=== PATIENT | female | born 1980 | race Caucasian/White ===

== ENCOUNTER 2018-03-16 09:53 | Emergency (ER) | payer OTHER ==
[2018-03-16] MEDS ORDERED: DEXAMETHASONE 10 MG/ML VIAL PO STA (10:37)
[2018-03-16] MEDS ORDERED: KETOROLAC 60 MG/2 ML VIAL IM STA (10:37)
--- NOTE | 2018-03-16 10:41 | ED Physician Documentation ---
PD HPI BACK PAIN - Stated complaint Stated Complaint: BACK PX - Chief complaint Chief Complaint: Back Pain - History obtained from History obtained from: Patient - History of Present Illness Timing - onset: Yesterday Timing - details: Gradual onset, Still present Location: Lower Quality: Pain, Spasm Associated symptoms: No: Fever, Weakness, Numbness, Incontinent of urine Worsened by: Movement, Twisting Similar symptoms before: Has not had sx before - Treatment prior to arrival Treatment prior to arrival: Tylenol and Ibuprophen without relief. - Additional information Additional information: The patient is a 37-year-old female who presents with lower back pain. The pain started yesterday with no specific injury. She was doing housework at the time the pain started. She denies any associated fever, numbness, weakness, or urinary incontinence. The pain is worse today than it was yesterday. It is worse with movement. She has been using Tylenol and ibuprofen without relief. Past history is significant for a slipped lumbar disc about 10 years ago. The pain today feels different from that, with more of muscle spasm. Review of Systems Constitutional: denies: Fever Nose: denies: Congestion Throat: denies: Sore throat Cardiac: denies: Chest pain / pressure Respiratory: denies: Dyspnea, Cough GI: denies: Abdominal Pain, Nausea, Vomiting : denies: Dysuria, Incontinent Skin: denies: Rash Musculoskeletal: reports: Back pain (lower back). denies: Neck pain, Extremity pain Neurologic: denies: Focal weakness, Numbness, Headache PD PAST MEDICAL HISTORY - Past Medical History Past Medical History: No - Past Surgical History Past Surgical History: Yes General: Cholecystectomy, Appendectomy /TEAROOM HOST: section - Present Medications Home Medications: Ambulatory Orders Medication Instructions Recorded Confirmed Cyclobenzaprine [Flexeril] 10 mg PO TID PRN #20 tablet 03/16/18 HYDROcod/ACETAM 5/325 [[place] 5/325] 1 - 2 ea PO Q6H PRN #15 tablet 03/16/18 - Allergies Allergies/Adverse Reactions: Allergies Allergy/AdvReac Type Severity Reaction Status Date / Time No Known Drug Allergies Allergy Verified 03/16/18 10:01 - Social History Does the pt smoke?: No Smoking Status: Never smoker Does the pt drink ETOH?: Yes Does the pt have substance abuse?: No - Immunizations Immunizations are current?: Yes PD ED PE NORMAL - Vitals Vital signs reviewed: Yes (mild hypertension initially) - General General: Alert and oriented X 3, Well developed/nourished - HEENT HEENT: Atraumatic - Neck Neck: No adenopathy - Cardiac Cardiac: RRR - Respiratory Respiratory: No respiratory distress, Clear bilaterally - Abdomen Abdomen: Soft, Non tender - Back Back: No CVA TTP, No spinal TTP, Other (Tenderness to palpation of paralumbar musculature.) - Derm Derm: No rash - Extremities Extremities: No edema, No calf tenderness / cord, Other (Straight leg raise test is negative bilaterally.) - Neuro Neuro: Alert and oriented X 3, No motor deficit, No sensory deficit, Other ( Deep tendon reflexes 2+ and equal bilaterally at the patellar and Achilles tendons.) Results - Vitals Vitals: Vital Signs - 24 hr 03/16/18 03/16/18 09:58 11:41 Temperature 36.5 C 37.1 C Heart Rate 82 70 Respiratory 16 17 Rate Blood Pressure 129/90 H 118/78 O2 Saturation 98 99 Oxygen O2 Source Room air PD MEDICAL DECISION MAKING - ED course Complexity details: re-evaluated patient, considered differential, d/w patient ED course: The patient's presentation is most consistent with acute lumbar strain. Her presentation does not suggest epidural abscess, cauda equina syndrome, or spinal stenosis. Treatment in the emergency department included administration of dexamethasone 10 mg orally and ketorolac 60 mg IM. She reports slight improvement of her symptoms with this treatment. She is being discharged with prescriptions for Flexeril and for Vicodin, 15 tablets. I discussed with her the expected course of illness, symptomatic treatment and outpatient follow-up, as well as potentially worrisome signs or symptoms that should prompt reevaluation in the emergency department. - Sepsis Event Vital Signs: Vital Signs - 24 hr 03/16/18 03/16/18 09:58 11:41 Temperature 36.5 C 37.1 C Heart Rate 82 70 Respiratory 16 17 Rate Blood Pressure 129/90 H 118/78 O2 Saturation 98 99 Oxygen O2 Source Room air Departure - Departure Disposition: 01 Home, Self Care Clinical Impression: Back pain Qualifiers: Back pain location: low back pain Chronicity: acute Back pain laterality: bilateral Sciatica presence: without sciatica Qualified Code(s): M54.5 - Low back pain Condition: Stable Instructions: ED Low Back Pain Injury Follow-Up: JLUIS ZEE PA-C [Primary Care Provider] - Prescriptions: Cyclobenzaprine [Flexeril] 10 mg PO TID PRN #20 tablet PRN Reason: Spasms HYDROcod/ACETAM 5/325 [[place] 5/325] 1 - 2 ea PO Q6H PRN #15 tablet PRN Reason: Pain Comments: Apply ice pack to your lower back intermittently for the next 3 days. You can use ibuprofen, up to 800 mg 3 times daily for its anti-inflammatory effect. You can use Flexeril as prescribed if needed for muscle spasms. You can use Vicodin as prescribed if needed for pain. Let pain be your guide to activity level. Follow up with your primary physician within 1-2 weeks. Call to schedule appointment. Return to the emergency department if you develop increasing pain, fever, urinary incontinence, or otherwise worsening symptoms. Discharge Date/Time: 03/16/18 11:44
[2018-03-16] MEDS ORDERED: CHERRY SYRUP 10 ML UDC PO ONE (10:42)
[2018-03-16 11:41] VITALS: BP 118/78
== END 2018-03-16 11:44 | disposition home or self-care (01) ==
LOC: ED 09:53
DX: M54.5 Low back pain (principal)
CPT/HCPCS: 96372; 99283; A9270

== ENCOUNTER 2018-11-17 20:17 | Emergency (ER) | payer OTHER ==
[2018-11-17 20:23] VITALS: BP 118/71
[2018-11-17] MEDS ORDERED: CHERRY SYRUP 10 ML UDC PO ONE (20:36)
[2018-11-17] MEDS ORDERED: DEXAMETHASONE 10 MG/ML VIAL PO STA (20:36)
[2018-11-17] MEDS ORDERED: IPRATROPIUM/ALBUTEROL 3 ML NEB INH STA (20:36)
--- NOTE | 2018-11-17 20:39 | ED Physician Documentation ---
PD HPI DYSPNEA - Stated complaint Stated Complaint: ASTMA ATTACK - Chief complaint Chief Complaint: Resp - History obtained from History obtained from: Patient - History of Present Illness Timing - onset: Today Timing - onset during: Rest Timing - duration: Days (1) Timing - details: Gradual onset, Still present Inciting event(s): URI Improved by: Inhaler/neb Worsened by: Exertion, Coughing Associated symptoms: Cough. No: Fever, Chest pain / discomfort, Palpitations, Diaphoresis Similar symptoms before: Diagnosis (asthma) Recently seen: Not recently seen - Additional information Additional information: 38-year-old female with a history of allergic asthma has developed shortness of breath today that has not responded to use of her inhaler multiple times. She states that yesterday she did not have to use her inhaler at all. She is developed a cough today she is on some Claritin and has not had much in the way of nasal drainage. She last had to be on prednisone last year. Review of Systems Constitutional: denies: Fever Eyes: denies: Decreased vision Ears: denies: Ear pain Nose: denies: Rhinorrhea / runny nose, Congestion Throat: denies: Sore throat Cardiac: denies: Chest pain / pressure, Palpitations Respiratory: reports: Dyspnea, Cough, Wheezing GI: denies: Abdominal Pain, Nausea : denies: Dysuria PD PAST MEDICAL HISTORY - Past Surgical History Past Surgical History: Yes General: Cholecystectomy, Appendectomy /HUMANITIES PROFESSOR: section - Present Medications Home Medications: Ambulatory Orders Medication Instructions Recorded Confirmed Cyclobenzaprine [Flexeril] 10 mg PO TID PRN #20 tablet 03/16/18 HYDROcod/ACETAM 5/325 [[place] 5/325] 1 - 2 ea PO Q6H PRN #15 tablet 03/16/18 predniSONE [Deltasone] 10 mg PO ONCE #26 tablet 11/17/18 - Allergies Allergies/Adverse Reactions: Allergies Allergy/AdvReac Type Severity Reaction Status Date / Time No Known Drug Allergies Allergy Verified 03/16/18 10:01 - Social History Does the pt smoke?: No Smoking Status: Never smoker Does the pt drink ETOH?: Yes Does the pt have substance abuse?: No - Immunizations Immunizations are current?: Yes PD ED PE NORMAL - Vitals Vital signs reviewed: Yes (normal ) - General General: Alert and oriented X 3, Well developed/nourished, Other (short shallow breaths.) - HEENT HEENT: Atraumatic, PERRL, EOMI, Ears normal, Pharynx benign - Neck Neck: Supple, no meningeal sign, No bony TTP - Cardiac Cardiac: RRR, No murmur - Respiratory Respiratory: No respiratory distress, Other (diminished breath sounds bilat) - Abdomen Abdomen: Soft, Non tender - Back Back: No CVA TTP, No spinal TTP - Derm Derm: Normal color, Warm and dry, No rash - Extremities Extremities: No deformity, No edema - Neuro Neuro: Alert and oriented X 3, trade mark attorney 2-12 intact, No motor deficit, No sensory deficit, Normal speech Eye Opening: Spontaneous Motor: Obeys Commands Verbal: Oriented GCS Score: 15 - Psych Psych: Normal mood, Normal affect Results - Vitals Vitals: Vital Signs - 24 hr 11/17/18 20:20 Temperature 36.6 C Heart Rate 78 Respiratory 16 Rate Blood Pressure 118/71 O2 Saturation 100 Oxygen O2 Source Room air PD MEDICAL DECISION MAKING - ED course Complexity details: reviewed old records, reviewed results, re-evaluated patient, considered differential, d/w patient ED course: 38-year-old female with history of allergic asthma has developed acute asthma today and has a lot of tightness to her upper chest restricting her breathing. Here in the emerge department she is administered a DuoNeb treatment she is given a spacer for use with her albuterol inhaler and she is given 10 mg of dexamethasone. We will place her on a prednisone taper I discussed the expectations with patient and asked her to return to the emergency department should she not have further improvement in her breathing or if she has any worsening. Departure - Departure Disposition: 01 Home, Self Care Clinical Impression: Asthma exacerbation Qualifiers: Asthma severity: mild Asthma persistence: intermittent Qualified Code(s): J45.21 - Mild intermittent asthma with (acute) exacerbation Condition: Stable Instructions: ED Reactive Airway Disease Follow-Up: Harjeet Romero MD [Primary Care Provider] - Prescriptions: predniSONE [Deltasone] 10 mg PO ONCE #26 tablet
== END 2018-11-17 21:26 | disposition home or self-care (01) ==
LOC: ED 20:17
DX: J45.21 Mild intermittent asthma with (acute) exacerbation (principal)
CPT/HCPCS: 94640; 99281; 99284; A9270

== ENCOUNTER 2019-05-20 19:18 | Emergency (ER) | payer OTHER ==
--- NOTE | 2019-05-20 20:05 | XRAY Report ---
Reason: cough x 1 week with SOA x 2 days Procedure Date: 05/20/2019 Accession Number: [id number] / [id number] Procedure: XR - Chest 2 View X-Ray CPT Code: 11271 Final Report FULL RESULT: EXAM: CHEST RADIOGRAPHY EXAM DATE: 05/20/2019 07:37 PM. CLINICAL HISTORY: Cough x 1 week with shortness of breath x 2 days. COMPARISON: None. TECHNIQUE: PA x2, lateral views. FINDINGS: Lungs/Pleura: No focal opacities evident. No peribronchial cuffing or interstitial abnormality. No pleural effusion. No pneumothorax. Normal volumes. Mediastinum: Heart and mediastinal contours are unremarkable. Other: None. IMPRESSION: Normal chest radiography. RADIA
[2019-05-20] MEDS ORDERED: IPRATROPIUM/ALBUTEROL 3 ML NEB INH STA (20:44)
[2019-05-20] MEDS ORDERED: predniSONE 20 MG TABLET PO STA (20:44)
--- NOTE | 2019-05-20 20:46 | ED Physician Documentation ---
PD HPI URI - Stated complaint Stated Complaint: ASTMATIC SX - Chief complaint Chief Complaint: Resp - History obtained from History obtained from: Patient (38-year-old woman with history of mild intermittent asthma. Does not take anything at maintenance. Has been hospitalized in the past but not for many years. She complains of cough and cold symptoms for a week and now difficulty breathing for the last few days with a nonproductive cough and wheezing that has not been helped much by her albuterol inhaler which is the only thing she has at home right now for her asthma. No fevers at this juncture.) Review of Systems Constitutional: denies: Fever, Chills Nose: denies: Rhinorrhea / runny nose Respiratory: reports: Dyspnea, Cough, Wheezing PD PAST MEDICAL HISTORY - Past Medical History Past Medical History: Yes Cardiovascular: None Respiratory: Asthma Neuro: None Endocrine/Autoimmune: None GI: None SOIL CHEMIST: None : None HEENT: None Psych: Post traumatic stress disorder Musculoskeletal: None Derm: None - Past Surgical History Past Surgical History: Yes General: Cholecystectomy, Appendectomy /SOIL CHEMIST: section - Present Medications Home Medications: Ambulatory Orders Medication Instructions Recorded Confirmed Albuterol Sulfate [Albuterol 1 - 2 puffs INH PRN PRN 05/20/19 05/20/19 Sulfate Hfa] Loratadine [Claritin] 10 mg PO DAILY 05/20/19 05/20/19 Sertraline [Zoloft] 50 mg PO DAILY 05/20/19 05/20/19 predniSONE [Deltasone] 20 mg PO [id number] #21 tab 05/20/19 - Allergies Allergies/Adverse Reactions: Allergies Allergy/AdvReac Type Severity Reaction Status Date / Time No Known Drug Allergies Allergy Verified 05/20/19 19:24 - Social History Does the pt smoke?: No Smoking Status: Never smoker Does the pt drink ETOH?: Yes Does the pt have substance abuse?: No - Immunizations Immunizations are current?: Yes - POLST Patient has POLST: No PD ED PE NORMAL - Vitals Vital signs reviewed: Yes - General General: Alert and oriented X 3, No acute distress - Neck Neck: Supple, no meningeal sign, No bony TTP - Cardiac Cardiac: RRR, No murmur - Respiratory Respiratory: No respiratory distress, Other (Occasional bronchitic cough, nonlabored, speaking in full sentences, diminished throughout.) - Neuro Neuro: Alert and oriented X 3, Normal speech Results - Vitals Vitals: Vital Signs - 24 hr 05/20/19 05/20/19 05/20/19 19:20 20:58 21:15 Temperature 36.8 C Heart Rate 94 100 104 H Respiratory 20 20 20 Rate Blood Pressure 143/87 H O2 Saturation 98 05/20/19 21:32 Temperature 36.7 C Heart Rate 100 Respiratory 18 Rate Blood Pressure 115/65 O2 Saturation 99 Oxygen O2 Source Room air PD MEDICAL DECISION MAKING - ED course ED course: 38-year-old woman with mild intermittent asthma with acute exacerbation. Much better and much more air movement after 2 nebs here and also got steroids. No evidence of bacterial infection. Chest x-ray interpreted contemporaneously by me is clear. Departure - Departure Disposition: Home, Self Care Clinical Impression: Asthma exacerbation Qualifiers: Asthma severity: mild Asthma persistence: intermittent Qualified Code(s): J45.21 - Mild intermittent asthma with (acute) exacerbation Condition: Good Record reviewed to determine appropriate education?: Yes Instructions: Asthma Dc Prescriptions: predniSONE [Deltasone] 20 mg PO [id number] #21 tab Comments: Call your doctor to arrange a follow-up appointment, make the next available appointment. In the interim, return anytime if worse or if new symptoms develop.. Your blood pressure was elevated today on check into the emergency department. This does not mean that you have hypertension, it is a common phenomenon to come to the emergency department and have elevated blood pressure. I recommend that you see your primary care physician within the week to have it rechecked when you are feeling better. Discharge Date/Time: 05/20/19 21:35
[2019-05-20] MEDS ORDERED: ALBUTEROL NEB 2.5 MG/3 ML INH STA (21:09)
[2019-05-20 21:33] VITALS: BP 115/65
== END 2019-05-20 21:35 | disposition home or self-care (01) ==
LOC: ED 19:18
DX: J45.21 Mild intermittent asthma with (acute) exacerbation (principal)
CPT/HCPCS: 71046; 94640; 99283; 99284; J7512

== ENCOUNTER 2019-06-20 12:38 | Outpatient (CLI) | payer OTHER ==
[~2019-06-20 12:38] MED LIST: ALBUTEROL NEB 2.5 MG/3 ML INH ONE
== END 2019-06-20 12:39 | disposition home or self-care (01) ==
LOC: RT 12:38
PROVIDERS: ATTEND Family Medicine
DX: R09.89 Other specified symptoms and signs involving the circulatory and respiratory systems (principal)
CPT/HCPCS: 94010

== ENCOUNTER 2019-06-24 17:36 | Emergency (ER) | payer OTHER ==
[2019-06-24 17:50] VITALS: BP 133/91
[2019-06-24] MEDS ORDERED: PROPARACAINE 0.5% OPHTH DROPS 15 ML RIGHTEYE STA (18:16)
--- NOTE | 2019-06-24 18:36 | ED Physician Documentation ---
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 who developed pain and redness of the left eye today without visual deficit.) Review of Systems Constitutional: denies: Fever, Chills Ears: denies: Loss of hearing, Ear pain Nose: denies: Rhinorrhea / runny nose, Congestion PD PAST MEDICAL HISTORY - Past Medical History Cardiovascular: None Respiratory: Asthma Neuro: None Endocrine/Autoimmune: None GI: None SUPERVISOR DECORATING: None : None HEENT: None Psych: Post traumatic stress disorder Musculoskeletal: None Derm: None - Past Surgical History Past Surgical History: Yes General: Cholecystectomy, Appendectomy /SUPERVISOR DECORATING: section - Present Medications Home Medications: Ambulatory Orders Medication Instructions Recorded Confirmed Albuterol Sulfate [Albuterol 1 - 2 puffs INH PRN PRN 05/20/19 05/20/19 Sulfate Hfa] Loratadine [Claritin] 10 mg PO DAILY 05/20/19 05/20/19 Sertraline [Zoloft] 50 mg PO DAILY 05/20/19 05/20/19 predniSONE [Deltasone] 20 mg PO [id number] #21 tab 05/20/19 Tobramycin/Dexamethasone [Tobradex 1 drops LEFTEYE QID #1 bot 06/24/19 Eye Drops] - Allergies Allergies/Adverse Reactions: Allergies Allergy/AdvReac Type Severity Reaction Status Date / Time No Known Drug Allergies Allergy Verified 05/20/19 19:24 - Social History Does the pt smoke?: No Smoking Status: Never smoker Does the pt drink ETOH?: Yes Does the pt have substance abuse?: No - Immunizations Immunizations are current?: Yes - POLST Patient has POLST: No PD ED PE NORMAL - Vitals Vital signs reviewed: Yes - General General: Alert and oriented X 3, No acute distress - HEENT HEENT: PERRL, EOMI, Other (She has apparent episcleritis of the lateral part of the right eye with a focal area of triangular-shaped redness with sparing of the limbus. There is no flourescein uptake. William-Pen on the left was 17.) Results - Vitals Vitals: Vital Signs - 24 hr 06/24/19 17:47 Temperature 36.2 C L Heart Rate 82 Respiratory 18 Rate Blood Pressure 133/91 H O2 Saturation 100 Oxygen O2 Source Room air PD MEDICAL DECISION MAKING - ED course ED course: She has apparent episcleritis in the left eye, close Follow-up was advised and she is started on TobraDex in the interim. Departure - Departure Disposition: Home, Self Care Clinical Impression: Episcleritis/scleritis Condition: Good Record reviewed to determine appropriate education?: Yes Prescriptions: Tobramycin/Dexamethasone [Tobradex Eye Drops] 1 drops LEFTDEBORAHE QID #1 bot Comments: Follow-up with your nurse unit manager within 3 days for recheck. Return for new or worsening symptoms. Your blood pressure was elevated today on check into the emergency department. This does not mean that you have hypertension, it is a common phenomenon to come to the emergency department and have elevated blood pressure. I recommend that you see your primary care physician within the week to have it rechecked when you are feeling better.
== END 2019-06-24 19:04 | disposition home or self-care (01) ==
LOC: ED 17:36
DX: H15.102 Unspecified episcleritis, left eye (principal); R03.0 Elevated blood-pressure reading, without diagnosis of hypertension
CPT/HCPCS: 99282; 99283; J3490

== ENCOUNTER 2019-09-03 09:05 | Emergency (ER) | payer OTHER ==
[2019-09-03 10:55] VITALS: BP 111/75
[2019-09-03] MEDS ORDERED: DEXAMETHASONE 10 MG/ML VIAL PO STA (10:55)
[2019-09-03] MEDS ORDERED: CHERRY SYRUP 10 ML UDC PO ONE (10:55)
--- NOTE | 2019-09-03 11:09 | ED Physician Documentation ---
PD HPI URI - Stated complaint Stated Complaint: FEVER,ACHES,WEAKNESS - Chief complaint Chief Complaint: Fever - History obtained from History obtained from: Patient - History of Present Illness Timing - onset: How many days ago (3) Timing duration: Days (3) Timing details: Gradual onset, Still present Associated symptoms: Fever, Chills, Sweats, Nasal congestion, Rhinorrhea, Sore throat, Dry cough, NVD Contributing factors: Sick contact Improves by: Rest, Medication Worsened by: Activity Similar symptoms before: Diagnosis (influenza) Recently seen: Not recently seen - Additional information Additional information: Previously well 39-year-old female has developed a fever aches pains headache sore throat nasal congestion and cough about 3 days ago. Review of Systems Constitutional: reports: Fever, Chills, Myalgias, Fatigue, Sweats Eyes: denies: Decreased vision Ears: denies: Ear pain Nose: reports: Rhinorrhea / runny nose, Congestion Throat: reports: Sore throat Cardiac: denies: Chest pain / pressure, Palpitations Respiratory: reports: Cough. denies: Dyspnea GI: reports: Abdominal Pain, Nausea, Diarrhea : denies: Dysuria, Frequency PD PAST MEDICAL HISTORY - Past Medical History Cardiovascular: None Respiratory: Asthma Neuro: Migraines Endocrine/Autoimmune: None GI: None SENIOR CISCO NETWORK ENGINEER: None : None HEENT: None Psych: Post traumatic stress disorder Musculoskeletal: None Derm: None - Past Surgical History Past Surgical History: Yes General: Cholecystectomy, Appendectomy /SENIOR CISCO NETWORK ENGINEER: section - Present Medications Home Medications: Ambulatory Orders Medication Instructions Recorded Confirmed Albuterol Sulfate [Albuterol 1 - 2 puffs INH PRN PRN 05/20/19 05/20/19 Sulfate Hfa] Loratadine [Claritin] 10 mg PO DAILY 05/20/19 05/20/19 Sertraline [Zoloft] 50 mg PO DAILY 05/20/19 05/20/19 predniSONE [Deltasone] 20 mg PO [id number] #21 tab 05/20/19 Tobramycin/Dexamethasone [Tobradex 1 drops LEFTEYE QID #1 bot 06/24/19 Eye Drops] Oseltamivir Phosphate [Tamiflu] 75 mg PO BID #10 capsule 09/03/19 - Allergies Allergies/Adverse Reactions: Allergies Allergy/AdvReac Type Severity Reaction Status Date / Time No Known Drug Allergies Allergy Verified 09/03/19 09:16 - Social History Does the pt smoke?: No Smoking Status: Never smoker Does the pt drink ETOH?: Yes Does the pt have substance abuse?: No - Immunizations Immunizations are current?: Yes - POLST Patient has POLST: No PD ED PE NORMAL - Vitals Vital signs reviewed: Yes (hypertensive mild ) - General General: Alert and oriented X 3, No acute distress, Well developed/nourished - HEENT HEENT: Atraumatic, PERRL, EOMI, Ears normal, Moist mucous membranes, Other (mild posterior inflamation ) - Neck Neck: Supple, no meningeal sign, No bony TTP - Cardiac Cardiac: RRR, No murmur - Respiratory Respiratory: No respiratory distress, Clear bilaterally - Abdomen Abdomen: Normal bowel sounds, Soft, Non tender, Non distended, No organomegaly - Back Back: No CVA TTP, No spinal TTP - Derm Derm: Normal color, Warm and dry, No rash - Extremities Extremities: No deformity, No edema, No calf tenderness / cord - Neuro Neuro: Alert and oriented X 3, bowling ball weigher and packer 2-12 intact, No motor deficit, No sensory deficit, Normal speech Eye Opening: Spontaneous Motor: Obeys Commands Verbal: Oriented GCS Score: 15 - Psych Psych: Normal mood, Normal affect Results - Vitals Vitals: Vital Signs - 24 hr 09/03/19 09/03/19 09/03/19 09:16 09:40 10:54 Temperature 37 C 37.1 C 37.1 C Heart Rate 79 72 74 Respiratory 17 20 20 Rate Blood Pressure 115/87 H 121/83 H 111/75 O2 Saturation 99 94 98 Oxygen O2 Source Room air - Labs Labs: Laboratory Tests 09/03/19 09:22 Influenza A (Rapid) POSITIVE H Influenza B (Rapid) Negative PD MEDICAL DECISION MAKING - ED course Complexity details: considered differential, d/w patient ED course: 39-year-old female with fever and congestion is 3 days into her illness and has influenza A on her nasal swab. She is administered dexamethasone 10 mg orally here in the emergency department I have encouraged hydration and we will administer Tamiflu. Departure - Departure Disposition: 01 Home, Self Care Clinical Impression: Influenza A Condition: Stable Instructions: ED Flu Follow-Up: Harjeet Romero MD [Primary Care Provider] - Prescriptions: Oseltamivir Phosphate [Tamiflu] 75 mg PO BID #10 capsule Forms: Activity restrictions
== END 2019-09-03 11:26 | disposition home or self-care (01) ==
LOC: ED 09:05
DX: J10.1 Influenza due to other identified influenza virus with other respiratory manifestations (principal)
CPT/HCPCS: 87275; 87276; 99283; 99284; A9270